=== PATIENT | male | born 1950 | race Caucasian/White ===

== ENCOUNTER 2022-01-06 08:50 | Day surgery (SDC) | payer MEDICARE, SELFPAY ==
[2022-01-05 12:46] LABS: SARS PCR* Negative SARS-CoV-2 (Negative)
[2022-01-06] VITALS (26 sets, daily range): BP systolic 97–179; BP diastolic 64–108; PULSE 51–94; RESP 11–18; TEMP 36–36.7; O2SAT 93–100; BMI 27.9
[2022-01-06] MEDS: OXYCODONE (CR) 10 MG TAB.ER.12H PO (08:55)
[2022-01-06] MEDS: LACTATED RINGERS 1000 ML 1,000 ML 100 ML IV ×2 (09:00→10:52)
[2022-01-06] MEDS: SODIUM CHLORIDE 0.9 % (FLUSH) 10 ML SYRINGE IVF (09:35)
--- NOTE | 2022-01-06 09:36 | SUR.PREOP ---
TIME?OUT:?0936 PT/Karli ANDERSEN RN/Solo GRANADO MDA?VERIFICATION?OF?SURGICAL?SITE,?PROCEDURE,?AND?CONSENT OBTAINED?PRIOR?TO?INVASIVE?PROCEDURE.
--- NOTE | 2022-01-06 09:57 | P.NB_ITS ---
Nerve Block Nerve Block Time Seen by Provider: 09:35 Date Seen: 01/06/22 Type of block requested by surgeon for post-operative analgesia: adductor canal Side: right Time out performed: Yes Verification of patient name: Yes Verification of date of : Yes Site marking: site marked Name of person performing procedure: Eleuterio Continuous monitoring Was continuous monitoring of O2 sat, B/P, distribution center supervisor, recorded every 15 minutes?: Yes Procedure Checklist: sterile prep, needles and gloves Ultrasound guided. Images saved: Yes Medications given in 5ml increments after negative aspiration: Ropivicaine %: 0.5 mL: 20 Needle gauge: 22 Decadron (mg): 10 Precedex (mcg): 25 Patient tolerated procedure well: Yes Additional comments: Needle noted adjacent to nerve
--- NOTE | 2022-01-06 09:58 | P.NB_ITS ---
Nerve Block Nerve Block Time Seen by Provider: 09:35 Date Seen: 01/06/22 Type of block requested by surgeon for post-operative analgesia: geniculars Side: right Time out performed: Yes Verification of patient name: Yes Verification of date of : Yes Site marking: site marked Name of person performing procedure: Eleuterio Continuous monitoring Was continuous monitoring of O2 sat, B/P, roofing subcontractor, recorded every 15 minutes?: Yes Procedure Checklist: sterile prep, needles and gloves Medications given in 5ml increments after negative aspiration: Ropivicaine %: 0.5 mL: 9 Needle gauge: 25 Patient tolerated procedure well: Yes
[2022-01-06] MEDS: CEFAZOLIN 2 GM INJ IVP (10:15)
--- NOTE | 2022-01-06 10:48 | SUR.OPER ---
PATIENT QUESTIONS ANSWERED SATISFACTORILY PREOPERATIVELY. PATIENT BROUGHT TO OR #2 PER WHEELCHAIR. Patient positioned supine on OR #2 bed.? Perioperative team supported arms on arm boardS. Final approval of positioning by surgeon.
--- NOTE | 2022-01-06 11:17 | CRLHL7_ITS ---
For Patients: As a result of the Cures Act, medical imaging exams and procedure reports are released immediately into your electronic medical record. You may view this report before your referring provider. If you have questions, please contact your health care provider. Indication: POST OP RIGHT TKA Technique: Two views right knee Findings/Impression: Hardware from a right total knee arthroplasty is in satisfactory position. Bone alignment is normal. No sign of acute fracture. Postop changes are within normal limits. Soft tissue varicosities. Dictated by José Rodriguez MD @ 01/06/2022 12:36:36 PM (Electronically Signed)
--- NOTE | 2022-01-06 11:21 | PM.ORPRC ---
Procedure Note Date of procedure: 01/06/22 Procedure: SURGEON: David Mcfarland MD COOK STARCH: Kenzie Yañez PA-C PREOPERATIVE DIAGNOSIS: Right knee osteoarthritis POSTOPERATIVE DIAGNOSIS: Right knee osteoarthritis NAME OF OPERATION: Right total knee arthroplasty ANESTHESIA: Spinal ESTIMATED BLOOD LOSS: 0 mL COMPLICATIONS: None SPECIMENS: None DRAINS: None PREOPERATIVE ANTIBIOTICS: Ancef 2 grams IMPLANTS: 1. J&J Attune # 8 posterior stabilized femur 2. #6 fixed-bearing tibia 3. # 8 posterior stabilized, 5 mm fixed-bearing polyethylene 4. 41 patella INDICATIONS: The patient is a 71-year-old male with a longstanding history of severe, unrelenting right knee pain secondary to end-stage (grade IV) right knee osteoarthritis. Despite appropriate nonoperative management, including activity modification, anti-inflammatories, cijr-utk-ktojsuc pain medication, bracing, physical therapy, and injections they continue to have pain and disability. Operative intervention was offered. The risks, benefits and expected outcomes were discussed in detail. These included but were not limited to: Infection, bleeding, injury to blood vessel or nerve, venous thromboembolism. All questions were answered to their satisfaction. Use of an legal administrative assistant was necessary throughout the case for patient positioning and safety, soft tissue retraction, and closure. PROCEDURE: Spinal anesthesia was administered. The patient was placed supine on the operating table. The legal administrative assistant made sure the patient was positioned appropriately. The lower extremity was prepped and draped in the usual sterile fashion. The limb was exsanguinated with the Yohan bandage. The pneumatic tourniquet was inflated to 300 mmHg. A standard anterior incision was made with the knee in flexion. Subcutaneous dissection was sharply taken through fascial layer #1. Full-thickness medial and lateral flaps were elevated. The legal administrative assistant retracted the soft tissues and protected them throughout the case. A standard medial parapatellar approach was made. The patella was everted. The infrapatellar fat pad was preserved. The menisci and cruciate ligaments were sharply d?brided. Marginal osteophytes were d?brided with the rongeur. The drill was used to penetrate the femoral canal. The canal was aspirated and irrigated with pulse lavage. The intramedullary femoral guide was placed for a 5-degree valgus cut, removing 10 mm off the distal femur. The saw was used to make the cut. Whitesides line and the trans epicondylar axis were marked. The femoral sizing guide was pinned onto the distal femur. Three degrees of external rotation nicely parallels the transepicondylar axis. Pins were placed for posterior referencing. The four-in-one cutting guide was pinned onto the distal femur. The anterior, posterior, and chamfer cuts were made. The legal administrative assistant protected the collateral ligaments. The box cutting guide was pinned. The box cuts were made. The boxed trial was placed and was an excellent fit. Drill holes for the lugs were made. Attention was then turned to the proximal tibia. The extramedullary tibial guide was placed for a neutral varus/valgus cut with 5 degrees of posterior slope, removing 1 mm based off the medial tibial surface. The legal administrative assistant protected the collateral ligaments and the neurovascular bundle. The saw was used to make the cut. Trial components were placed. The knee was tight in both flexion and extension. We trialed components to simulate taking 2 more mm. The knee was still tight in both flexion and extension. Therefore, we replaced tibial cutting guide. We placed 2 more pins distally and advanced the guide 4 more mm. The saw was used to make the cut again. Trial components were placed again. Now with the knee was nicely balanced in both flexion and extension. Rotation of the tibial component was matched to the femur in full extension, matched to our tibial cutting pins, and marked with cautery. The trial components were removed. The tray was pinned by the legal administrative assistant and the drill and the punch were used. The tray was removed. The punch was used again. We placed a bone plug in the femoral canal. Attention was then turned to the patella. [place] patellar thickness was 24 mm. The lobster claw resection guide was used with the 9.5 mm ricardo. The saw was used to make the cut. Drill holes were made by the legal administrative assistant. The trial was placed and was an excellent fit. Cancellous surfaces were irrigated with pulse lavage and thoroughly dried by the legal administrative assistant. We cemented the tibial component, then the femoral component. A trial spacer was placed. The knee was brought into full extension. We then cemented the patellar component. Excessive cement was removed. The cement was allowed to harden. Any remaining excessive cement was removed with the osteotome. We impacted the 5 mm polyethylene onto the tibial tray. The knee was taken through a range of motion and was found to be nicely balanced in both flexion and extension. The patella tracks centrally. The legal administrative assistant did a three minute dilute Betadine solution soak. The legal administrative assistant irrigated the wound with 3 liters of normal saline via pulse lavage. The legal administrative assistant reapproximated the extensor mechanism with #1 Vicryl in an interrupted [id number] fashion. The legal administrative assistant then ran the extensor mechanism with a #1 PDO Stratafix. The legal administrative assistant closed the subcutaneous tissues with a 3-0 Stratafix and the skin with a running 3-0 Stratafix in a subcuticular fashion. Glue was used to seal the skin. The legal administrative assistant placed a dry dressing, KING stocking, and Polar Care. Sponge and needle counts were correct x2. The patient tolerated the procedure well. There were no apparent complications. They were carefully transferred to the hospital bed and taken to the postanesthesia care unit in satisfactory condition. PLAN: The patient will be mobilized with physical therapy. Aspirin will be used for DVT prophylaxis. They will be discharged to home once medically appropriate.
--- NOTE | 2022-01-06 11:24 | SUR.OPER ---
3000cc NACL BAG USED FOR IRRIGATION OF THE RIGHT KNEE STARTING AT 11:04. ENTIRE 3000cc USED.
--- NOTE | 2022-01-06 11:43 | SUR.OPER ---
ADDITIONAL 1000cc BAG NACL USED FOR IRRIGATION AT 11:39
--- NOTE | 2022-01-06 12:13 | W.ANESCHARGE ---
Anesthesia Charges Start Date/Time Anesthesia Start Date: 01/06/22 Anesthesia Start Time: 10:00 Stop Date/Time Anesthesia Stop Date: 01/06/22 Anesthesia Stop Time: 12:12 Summary Emergency: No Extremes of Age: Over 71-CPT 41491
[2022-01-06] MEDS: LACTATED RINGERS 1000 ML 1,000 ML 35 ML IV (13:05)
--- NOTE | 2022-01-06 13:52 | W.ANESCHARGE ---
Anesthesia Charges Start Date/Time Anesthesia Start Date: 01/06/22 Anesthesia Start Time: 10:00 Stop Date/Time Anesthesia Stop Date: 01/06/22 Anesthesia Stop Time: 12:12 Summary Emergency: No Extremes of Age: Over 71-CPT 12917
--- NOTE | 2022-01-06 14:21 | P.IMCN_ITS ---
Date of Consult Consult date: 01/06/22 Requesting Physician: Orthopedics Primary Care Provider: Zaid Wu MD Consult Narrative Reason for consult: Management of medical problems following surgery Narrative: [place] Almanzar is a 71 year old male seen in followup of right total knee arthroplasty. Procedure was performed today by Dr. Mcfarland. There was no complications. He is doing well after surgery. His nerve blocks are just beginning to wear off. He had no preoperative health concerns. He had a preop physical which showed no active medical problems. He has not had any recent illness. He did undergo physical therapy preoperatively which caused his knee to swell and be extremely painful for a few days. 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 This was felt due to cerebral amyloid angiopathy. As a result of this he has been advised to avoid aspirin and NSAIDs and anticoagulation He has had previous hernia surgery. He has had no problems with clotting and no problems with anesthesia. Only bleeding problem was his intra cerebral hemorrhage. Review of Systems Narrative: He reports no recent illness or injury. He has been generally feeling well except for his right knee. He has been limping on his right knee for several years. Previous knee injections have been of temporary benefit. [facility] Medical History (Updated 01/06/22 @ 14:37 by Malik Andrade MD) Cerebral amyloid angiopathy Cerebral hemorrhage Heart murmur Insomnia Pain of left side of body Paresthesia Surgical History H/O eye surgery History of hernia repair (~04/25/21) Family History Mother CHF (congestive heart failure) Father Heart attack High blood pressure Father ETOH abuse Brother Pacemaker COPD (chronic obstructive pulmonary disease) Sister A-fib Mother High blood pressure Social History (Updated 01/06/22 @ 14:34 by Malik Andrade MD) Narrative: He lives at home alone. He is self-employed doing work on [employer]. Closest family is his son Winston who lives in [place]. Winston is his healthcare power of claims attorney. His code status is full. Smoking Status: Former smoker Do you use any of these nicotine containing products: None How often do you have a drink containing alcohol: never AUDIT-C Alcohol total score: 0 Non-prescribed substance use: denies use Caffeine: Yes (occ coffee) Meds Home Medications and Allergies Home Medications Medication Instructions Recorded Confirmed Type acetaminophen 500 mg tablet 1,000 mg PO HS PRN 01/05/22 01/06/22 History tamsulosin 0.4 mg capsule 0.4 mg PO Q24H 01/05/22 01/06/22 History Allergies Allergy/AdvReac Type Severity Reaction Status Date / Time No Known Allergies Allergy Verified 01/06/22 09:08 Exam Narrative: Exam Narrative: He is alert and appears in no distress. Head is normal. Eyes normal. Oropharynx normal. Neck is supple without mass or adenopathy. Respirations are clear to auscultation. Cardiovascular: S1, S2, 1/6 systolic murmur. No gallop or rub. Abdomen: Bowel sounds active. Abdomen is soft without tenderness or mass. He has intact pedal pulses. His block affecting his right leg is still in affect any SI decreased sensation and strength in his right foot and ankle. No edema. Const: Vital Signs, click to edit/add: Vital Signs - 24 hr 01/06/22 09:12 01/06/22 09:36 01/06/22 09:40 Temperature 97.7 F Pulse Rate 70 55 L 56 L Respiratory Rate 18 16 14 Blood Pressure 139/72 132/98 H 127/83 Pulse Oximetry 99 99 100 01/06/22 09:45 01/06/22 12:07 01/06/22 12:10 Temperature 97.5 F L Pulse Rate 59 L 57 L 58 L Respiratory Rate 14 16 Blood Pressure 117/77 99/65 97/64 Pulse Oximetry 100 94 95 01/06/22 12:15 01/06/22 12:25 01/06/22 12:30 Temperature Pulse Rate 63 53 L 51 L Respiratory Rate 16 12 16 Blood Pressure 101/69 112/64 111/67 Pulse Oximetry 94 95 93 01/06/22 12:35 01/06/22 12:40 01/06/22 12:45 Temperature Pulse Rate 52 L 52 L 59 L Respiratory Rate 15 12 11 L Blood Pressure 102/70 104/67 113/76 Pulse Oximetry 94 93 95 01/06/22 12:50 01/06/22 12:55 01/06/22 13:02 Temperature 96.8 F L Pulse Rate 54 L 53 L 53 L Respiratory Rate 16 12 Blood Pressure 110/71 110/69 115/73 Pulse Oximetry 95 95 96 Documenting provider has reviewed patient's vital signs: yes Assessment and Plan Assessment and plan (1) Osteoarthritis of right knee: Status: Acute (2) Cerebral amyloid angiopathy: Problem comment: Cerebral amyloid angiopathy places patient at increased risk for intracerebral hemorrhage with antiplatelet and anticoagulation medicines. These medicines should only be used if the benefits exceed the risks. I do not think the benefits exceed the risk in this circumstance. Status: Acute
--- NOTE | 2022-01-06 15:38 | PC.NURSE ---
Pt arrived to room 260 from PACU in his hospital bed s/p RTKA with Dr. Mcfarland @ 1309pm. Initial assessment from PACU completed. Please see frequent post op VS. Pt denies pain or nausea. Pt does report some mild anxiety. BP levels trending up between 1400 and 1500, pt denies hx of HTN. Dr. Merritt notified of these elevated readings, nursing to continue monitoring pt's BP readings at this time. Jack from PT contacted to start working with pt, plan dangle while sitting on the edge of the bed and possible transfer to recliner if pt's block allows this position change. Report to Quin MULTANI for evening shift.
[2022-01-06] MEDS: CEFAZOLIN 2 GM in 0.9 % SODIUM CHLORIDE Mini-bag 100 ML IVPB (16:15)
[2022-01-06] MEDS: LACTATED RINGERS 1000 ML 1,000 ML 75 ML IV (16:15)
[2022-01-06] MEDS: MAG HYDROX/ALUMINUM HYD/SIMETH 30 ML ORAL.SUSP PO (16:16)
[2022-01-06] MEDS: OXYCODONE 5 MG TABLET PO ×4 (16:21→22:39)
[2022-01-06] MEDS: ONDANSETRON 2 MG/ML inj 4 MG IVP (16:36)
[2022-01-06] MEDS: ACETAMINOPHEN 500 MG TABLET 1000 MG PO (18:20)
[2022-01-06] MEDS: CELECOXIB 200 MG CAPSULE PO (21:09)
[2022-01-06] MEDS: LORazepam 0.5 MG TABLET PO (21:10)
[2022-01-06] MEDS: SENNOSIDES 1 TAB TABLET 2 TAB PO (21:10)
[2022-01-06] MEDS: HYDROmorphone 0.5 mg/0.5 ml inj IVP (23:20)
--- NOTE | 2022-01-06 23:23 | PC.NURSE ---
Patient is up to the chair/bathroom with assist of 1, walker and gait belt. Managing pain with PRN oxycodone. Cryo-cuff, SCDs and teds in place. Patient c/o of indigestion - Maalox given with relief.
[2022-01-07] MEDS: ACETAMINOPHEN 500 MG TABLET 1000 MG PO ×2 (00:30→06:26)
[2022-01-07] MEDS: CEFAZOLIN 2 GM in 0.9 % SODIUM CHLORIDE Mini-bag 100 ML IVPB ×2 (00:31→08:36)
[2022-01-07] MEDS: OXYCODONE 5 MG TABLET PO ×2 (00:33→07:41)
[2022-01-07 01:14] VITALS: BP 111/64; PULSE 72; RESP 16; TEMP 36.6; O2SAT 96
[2022-01-07 04:30] VITALS: RESP 14
--- NOTE | 2022-01-07 06:12 | PC.NURSE ---
Shift Note : Pt pleasant and cooperative, VSS, afebrile, BS active. Pt has slept most of the shift, see eMAR for medication administration.
[2022-01-07 07:12] LABS: INR 1.14 (0.91-1.10)
[2022-01-07 07:30] VITALS: BP 120/67; PULSE 76; RESP 16; TEMP 37.1; O2SAT 98
[2022-01-07] MEDS: TAMSULOSIN HCL 0.4 MG CAPSULE PO (08:37)
[2022-01-07] MEDS: CELECOXIB 200 MG CAPSULE PO (08:37)
[2022-01-07] MEDS: SENNOSIDES 1 TAB TABLET 2 TAB PO (08:37)
--- NOTE | 2022-01-07 09:11 | PM.ORPN ---
Subjective Subjective Time Seen by Provider: 08:10 Date Seen: 01/07/22 Principal diagnosis: Status post right knee replacement Interval history: [place] is comfortable this morning. He plans to discharge home today. He is at high risk of intracranial bleed and therefore cannot take anticoagulants. Ortho Exam Narrative Exam Narrative: Alert and oriented x3. Patient is in no acute distress. Converses without labored breathing. Hearing is grossly intact. Ambulates with a walker. Examination the right lower extremity shows the incision is covered with a dressing that is clean, dry, and intact. Mild soft tissue edema about the knee. Mild effusion. Bilateral calves are soft and nontender. CMS intact right lower extremity. Const Vital Signs, click to edit/add: Vital Signs - 24 hr 01/06/22 09:12 01/06/22 09:36 01/06/22 09:40 Temperature 97.7 F Pulse Rate 70 55 L 56 L Pulse Rate [Pulse Oximeter] Respiratory Rate 18 16 14 Blood Pressure 139/72 132/98 H 127/83 Blood Pressure [Right Arm] Pulse Oximetry 99 99 100 01/06/22 09:45 01/06/22 12:07 01/06/22 12:10 Temperature 97.5 F L Pulse Rate 59 L 57 L 58 L Pulse Rate [Pulse Oximeter] Respiratory Rate 14 16 Blood Pressure 117/77 99/65 97/64 Blood Pressure [Right Arm] Pulse Oximetry 100 94 95 01/06/22 12:15 01/06/22 12:25 01/06/22 12:30 Temperature Pulse Rate 63 53 L 51 L Pulse Rate [Pulse Oximeter] Respiratory Rate 16 12 16 Blood Pressure 101/69 112/64 111/67 Blood Pressure [Right Arm] Pulse Oximetry 94 95 93 01/06/22 12:35 01/06/22 12:40 01/06/22 12:45 Temperature Pulse Rate 52 L 52 L 59 L Pulse Rate [Pulse Oximeter] Respiratory Rate 15 12 11 L Blood Pressure 102/70 104/67 113/76 Blood Pressure [Right Arm] Pulse Oximetry 94 93 95 01/06/22 12:50 01/06/22 12:55 01/06/22 13:00 Temperature 96.8 F L 97.3 F L Pulse Rate 54 L 53 L 64 Pulse Rate [Pulse Oximeter] Respiratory Rate 16 12 16 Blood Pressure 110/71 110/69 Blood Pressure [Right Arm] 124/82 Pulse Oximetry 95 95 01/06/22 13:02 01/06/22 13:30 01/06/22 13:45 Temperature 97.3 F L Pulse Rate 53 L Pulse Rate [Pulse Oximeter] 62 62 Respiratory Rate 16 Blood Pressure 115/73 Blood Pressure [Right Arm] 129/86 133/89 Pulse Oximetry 96 100 01/06/22 14:00 01/06/22 14:15 01/06/22 14:30 Temperature Pulse Rate Pulse Rate [Pulse Oximeter] 65 66 77 Respiratory Rate 16 16 Blood Pressure Blood Pressure [Right Arm] 145/100 H 147/94 H 145/104 H Pulse Oximetry 99 100 01/06/22 15:00 01/06/22 16:00 01/06/22 17:00 Temperature 98.1 F 97.9 F Pulse Rate Pulse Rate [Pulse Oximeter] 76 71 71 Respiratory Rate 16 16 16 Blood Pressure Blood Pressure [Right Arm] 177/105 H 179/108 H 163/89 H Pulse Oximetry 100 99 100 01/06/22 18:00 01/06/22 19:00 01/07/22 01:14 Temperature 98.0 F 97.9 F 97.8 F Pulse Rate Pulse Rate [Pulse Oximeter] 74 94 72 Respiratory Rate 16 16 16 Blood Pressure Blood Pressure [Right Arm] 143/83 H 126/79 111/64 Pulse Oximetry 100 100 96 01/07/22 04:30 01/07/22 07:30 Temperature 98.8 F Pulse Rate Pulse Rate [Pulse Oximeter] 76 Respiratory Rate 14 16 Blood Pressure Blood Pressure [Right Arm] 120/67 Pulse Oximetry 98 Assessment and Plan Assessment and plan (1) Osteoarthritis of right knee: Status: Acute (2) Cerebral amyloid angiopathy: Problem details: Cerebral amyloid angiopathy places patient at increased risk for intracerebral hemorrhage with antiplatelet and anticoagulation medicines. These medicines should only be used if the benefits exceed the risks. I do not think the benefits exceed the risk in this circumstance. Status: Acute (3) Status post total knee replacement, right: Status: Acute Assessment and Plan: Plan for discharge is today to home if they meet discharge criteria. DVT prophylaxis includes home SCDs for 1 month, Payam stockings x1 month may remove for 1 hr per day, frequent ambulation, frequent ankle range of motion to promote blood flow. These home measures are stressed to [place], since he cannot take anti coagulants it is very important for him to move about his home frequently, use the SCDs, pump his ankles. He understands and agrees. He will let us know at any point if he develops calf pain. We discussed elevating his leg above heart level 3 times a day when he is at home and at the 1st sign of soft tissue edema he will massage this fluid proximally. Remove dressing in 1 week. Observe wound and phone Orthopedics with any questions or concerns Return to clinic in 1 week for a wound check Return to clinic in [address] Mcfarland Minimize narcotic use. Wean off and discontinue soon as possible. Activities as tolerated. No strenuous activity. Outpatient physical therapy as scheduled. Ice and elevate the operative extremity. No restriction on ice.
[2022-01-07 09:14] LABS: Hematocrit 30.7 % (37.0-53.0); Hemoglobin* 9.9 gm/dL (13.5-17.5); Mean Corpuscular HGB Conc 32 gm/dL (32-36); Mean Corpuscular Hemoglobin 29 pg (26-34); Mean Corpuscular Volume 90 fL (80-100); Platelet Count* 189 K/uL (140-440); Red Blood Count 3.43 m/uL (4.30-5.90); White Blood Count* 10.56 K/uL (4.50-11.00)
[2022-01-07 09:17] LABS: Slide Review Reflex No
[2022-01-07 09:19] LABS: Chloride* 106 mmol/L (96-114); Sodium* 137 mmol/L (135-149)
[2022-01-07 09:20] LABS: Potassium* 4.4 mmol/L (3.6-5.1)
[2022-01-07 09:22] LABS: Creatinine* 0.7 mg/dL (0.5-1.5); Est. Creatinine Clearance* 64.26; Estimated Glomerular Filt Rate 99.12
[2022-01-07 09:23] LABS: Blood Urea Nitrogen* 18 mg/dL (7-30); Carbon Dioxide* 27 mmol/L (20-32)
--- NOTE | 2022-01-07 13:11 | P.DS_ITS ---
DS: Providers Provider Primary care physician: Zaid Wu MD Attending Physician on discharge: David Mcfarland MD Date of Discharge: 01/07/22 DS: Diagnosis Discharge Diagnosis (1) Status post total knee replacement, right: Status: Acute (2) Cerebral amyloid angiopathy: Status: Acute Problem details: Cerebral amyloid angiopathy places patient at increased risk for intracerebral hemorrhage with antiplatelet and anticoagulation medicines. These medicines should only be used if the benefits exceed the risks. I do not think the benefits exceed the risk in this circumstance. DS: Summary Hospital Course Hospital Course: 71-year-old male admitted to the hospital yesterday for right total knee arthroplasty. Procedures performed by Dr. Mcfarland. There were no complications. He has done well overnight. Eating normally. Did well with physical therapy. Pain is well controlled. Decision was made to forego chemical VTE prophylaxis and use compression stockings and pneumatic compression to prevent VTE. Status at Discharge Overall status at discharge: patient is back to baseline Time Spent with Patient Time attestation: Total time spent providing and/or coordinating discharge services: Time spent: Greater than 30 minutes Exam Narrative: Exam Narrative: He is alert and appears in no distress. Breathing is unlabored. Legs examined. He has mild swelling around the knee. No marked erythema. Intact pulses and sensation distally. No pedal edema Const: Vital Signs, click to edit/add: Vital Signs - 24 hr 01/06/22 13:30 01/06/22 13:45 01/06/22 14:00 Temperature 97.3 F L Pulse Rate [Pulse Oximeter] 62 62 65 Respiratory Rate 16 16 Blood Pressure [Ri ght Arm] 129/86 133/89 145/100 H Pulse Oximetry 100 99 01/06/22 14:15 01/06/22 14:30 01/06/22 15:00 Temperature Pulse Rate [Pulse Oximeter] 66 77 76 Respiratory Rate 16 16 Blood Pressure [Ri ght Arm] 147/94 H 145/104 H 177/105 H Pulse Oximetry 100 100 01/06/22 16:00 01/06/22 17:00 01/06/22 18:00 Temperature 98.1 F 97.9 F 98.0 F Pulse Rate [Pulse Oximeter] 71 71 74 Respiratory Rate 16 16 16 Blood Pressure [Ri ght Arm] 179/108 H 163/89 H 143/83 H Pulse Oximetry 99 100 100 01/06/22 19:00 01/07/22 01:14 01/07/22 04:30 Temperature 97.9 F 97.8 F Pulse Rate [Pulse Oximeter] 94 72 Respiratory Rate 16 16 14 Blood Pressure [Ri ght Arm] 126/79 111/64 Pulse Oximetry 100 96 01/07/22 07:30 Temperature 98.8 F Pulse Rate [Pulse Oximeter] 76 Respiratory Rate 16 [facility] 120/67 Pulse Oximetry 98 Documenting provider has reviewed patient's vital signs: yes DS: Data Data Completed and Pending Labs on day of discharge: Labs from last 24 hours 01/07/22 01/07/22 01/07/22 06:47 06:47 06:40 WBC 10.56 RBC 3.43 L Hgb 9.9 L Hct 30.7 L MCV 90 MCH 29 MCHC 32 Plt Count 189 INR 1.14 H Sodium 137 Potassium 4.4 Chloride 106 Carbon Dioxide 27 BUN 18 Creatinine 0.7 Estimated Creat Clear 64.26 Discharge Plan Discharge Disposition: Home, Self-Care Discharging Surgeon: David Mcfarland Follow-Up Appointment: One week Prescriptions: New oxycodone 5 mg Tablet 2.5 - 5 mg PO Q4-6H MDD 6 tabs per day PRN (Reason: Pain) Qty: 42 0RF Rx Instructions: Minimize. Discontinue as soon as possible sennosides [Senna Lax] 8.6 mg Tablet 17.2 mg PO BID PRNQty: 100 0RF Rx Instructions: For narcotic related constipation Continued tamsulosin 0.4 mg capsule 0.4 mg PO Q24H 0RF Label Comments: Take 1 Capsule (0.4 mg) by mouth once daily after a meal. acetaminophen 500 mg tablet 1,000 mg PO HS PRN0RF Activity Level: Activity as Tolerated and No strenuous activity Activity Detail: Keep dressing on for 1 week. Dressing is waterproof. May shower. Surgical glue covers the wound. Attend Outpatient physical therapy as scheduled. Ice operative extremity without restriction. Wear compression stockings for 1 month post surgery. May remove for 1 hour per day. Notify Orthopedics with any questions or concerns ([phone]). Discharge Diet: Regular Patient Instructions: Laxative, Stimulant (By mouth), Oxycodone, Rapid Release (By mouth), Knee Replacement (DC) Forms: Work/Release Restrictions Follow-up: [facility] [Provider Group] - 01/13/22 12:30 pm (Physical therapy at [facility] ) Orthopedics, [facility] [Provider Group] - 01/15/22 1:40 pm (With Letty Pacheco ) David Mcfarland MD [Staff Physician] - (At your first appointment your 6 week appointment will be made with Dr. Mcfarland) Zaid Wu MD [Primary Care Provider] - Discharge Orders: Discharge Order (Routine); Ordered 01/07/22 Ordered By: Malik Andrade
== END 2022-01-07 12:15 | disposition home or self-care (01) ==
LOC: OR 08:50 → MEDSURG 01-07 11:02
PROVIDERS: Physician Assistant; PCP Family Medicine; Visit Provider Orthopaedic Surgery
PROC: (CPT 27447; principal; 2022-01-06 10:00)
DX: M17.11 Unilateral primary osteoarthritis, right knee (principal); E85.4 Organ-limited amyloidosis; I68.0 Cerebral amyloid angiopathy
CPT/HCPCS: 27447; 1402; 36415; 64447; 64454; 73560; 76942; 80051; 82565; 84520; 85027; 85610; 87635; 97110; 97116; 97161; 97165; 97535; 99100; A9270; C1776; J0690; J1100; J1170; J2250; J2405; J2704; J2795; J7120

== ENCOUNTER 2022-03-25 15:30 | Outpatient (RCR) | payer MEDICARE, SELFPAY ==
--- NOTE | 2022-01-20 09:05 | PT.OPDNX ---
PT [place] Out[facility] Daily Note PT [facility] Outpatient Daily Note Start: 01/19/22 15:34 Freq: Status: Active Protocol: Document 01/19/22 16:55 HUYEN (Rec: 01/19/22 17:37 HUYEN [id number]) E-Signed By Yen Garcia, PT PT OP Daily Progress Note Visit Information Note Type Daily Note Visit Number 1 Running Total Visit Number 2 Insurance Information Recert Due Date 03/19/22 Insurance Name Medicare B Insurance Information/Comments Patient?s PT course of care was initiated in previous EMR system for Pre-op evaluation on 12-17-21 under the . Medical Diagnosis s/p R TKA (DOS: 01-06-22) Treating Diagnosis R knee pain; Decreased R knee ROM; Decreased R knee strength gait impairments Referring MD Dr. Mcfarland Subjective Subjective [place] presents to PT post op R TKA. His surgery was on 06-18. Pt has not yet been seen by PT or by ortho for a follow up due to severe pain and limited transportation. He is concerned he is behind in his progress due to inability to attend PT session prior. He was also questioning if his post op bandage could be removed. Pt reports he struggled with severe pain following surgery. Pain was so bad he was not able to get out of bed for days. Over the past 3-4 days, he is finally feeling better. Pain levels are about a 6/10 . He uses Tylenol during day to control pain and an Oxycodone at night. Does have trouble sleeping at night due to pain. Pt initially did not do his HEP as directed due to his severe pain and inability to move his leg on his own. Started to be able to move his leg over the past 3-4 days so has been doing more exercises. His goal for therapy is to improve the use of his R LE Pain Comments Reported a 6/10 at time of eval. Precautions Treatment Precautions/Contraindications HX/o CVA (hemorrhage) Objective Other/Pertinent Objective AROM of R knee: 0-14-72 (L knee: 0-5-125) pre treatment; post treatment: 0-10-75 R LE strength: Quad set:3-/5; SLR - unable without quad lag HS flexibility on R: 50; R DF: 5 degree Edema: at patella- R: 43.0 cm , L: 41.0 cm; 16 cm distal to patella- R: 33.6 cm. L: 32.8 cm Gait - ambulates with 2 wheeled walker and shortened step length. Limited R knee ROM throughout gait cycle. Reeval X 20 mins. Patient Instructed in Risks/Benefits Yes Therapeutic Exercise Therapeutic Exercise Minutes (minutes) 20 Therapeutic Exercise: To Restore Review of HEP - Functional Status ankle pumps QS - suggested placed rolled towel behind knee to improve firing of quad. heel slides X 5. Has heel pain and tenderness so did not do more reps. SLR X 10 Seated heel slides X 10 Worked on R knee ROM with emphasis on ext with prolonged stretch and gentle manual pressure. Pt was guarding into flexion. Manual Therapy Techniques Manual Therapy Minutes (minutes) 5 Manual Therapy Techniques PA and AP mobs to increase ROM . Patellar mobs with emphasis on sup and inf glides Gait & Stair Training Gait Training/Stairs Minutes (minutes) 2 Gait & Stair Training Comments Worked on heel to toe gait pattern on R to increase R knee ROM during gait cycle and lengthening step/striden length. Self Care Management Training Self-Care Activity Minutes (minutes) 10 Self Care Management Training Did remove pt's dressing per orthro nursing. Incision looks clean, no drainage and no redness. Min/scant blood on dressing. Did review signs of infection with pt. Pt asked about showering - told him it was OK but not to soak knee. Treatment Minutes Untimed Code Treatment Minutes 20 Timed Code Treatment Minutes 37 Total Treatment Time 57 Billing Units Self-Care Activity Units 1 Therapeutic Exercise Units 1 Re-Evaluation Units 1 Assessment/Impression Assessment/Impression Pt had surgery approx 2 weeks ago and has not attended any PT or follow up ortho appts due to pain and limited transportation. Overall he is doing fair but slow progress due to lack of care post op. R knee ROM is limited to 0-10- 75. Has significant R LE weakness chandra in quad. Is able to perform a SLR with knee flexed. Edema is controlled. Incision is clean and healing well. Ambulating with mod limp with 4 wheeled walker. Plan is to continue with further skilled PT services to improve his ROM, strength and function with use of ther exs , NMRE, gait training and MT. Plan of Care Physical Therapy Goals New Goals established for post op rehab Short-term goals to be completed in 4 weeks: 1. Pt will display an increase in R knee AROM to 0-8-105 for ease with transfers and toileting. 2. Pt will display improved mechanics going up/down a 3 stairs with a reciprocal pattern using railing to safely get into this house. 3. Pt will display improved right hip flex, quad and hamstring strength >4/5 to improve quality of gait and yez-ic-gcdrr transfers. Long-term goals to be completed in 12 weeks: 1. Pt will be independent with HEP 2. Pt will increase his R knee AROM to 0-0-115 for ability to return to ambulating stairs and performing car transfers with ease. 3. Pt will be able to return to ambulation without an AD with mild to no gait deviations community based distances. Daily Plan of Care Continue per POC Daily Plan of Care Comments 1-2 times as week up to 12 weeks. Recertification Information Patient's H.I.C.N.# # Initial Certification Date 12/17/21 Most Recent Visit 01/19/22 Recertification Start Date 01/19/22 Recertification Due Date 04/19/22 Reasons to Continue Skilled Therapy Pt had surgery for his R TKA on 01-06-22. He has not been seen for a follow up with ortho or by rehab yet due to severe pain levels and limited transportation. His R knee ROM and strength is significantly limited due to his lack of post op follow through with MD and rehab. He would benefit from continued skilled PT services to work on his ROM, strength, gait, and balance for improvement in his function, pain reduction, independence, and safety. Rehabilitation Potential Good Continued Plan of Care and Interventions Will continue with PT over the next 8-12 weeks, 1-2 times a week. Will use ther exs, NMRE , ther act, manual therapy to improve his status. I Certify That I Have Established All Therapy Services/Plan Therapist Signature & License Number Monica Garcia, PT [id number] Physician Signature Shows Agreement Dates & Medical Necessity Physician Comment/Change Comment or Changes Physician Signature & Date Please Sign/Date Here Physician NPI Number #
== END 2022-05-22 15:29 | disposition home or self-care (01) ==
PROVIDERS: PCP Family Medicine; Visit Provider Orthopaedic Surgery
DX: M25.561 Pain in right knee (principal); Z51.89 Encounter for other specified aftercare
CPT/HCPCS: 97110; 97140; 97164; 97535

== ENCOUNTER 2022-06-25 07:27 | Day surgery (SDC) | payer MEDICARE, SELFPAY ==
[2022-06-25] VITALS (25 sets, daily range): BP systolic 92–152; BP diastolic 60–107; PULSE 51–96; RESP 12–18; TEMP 35.3–36.9; O2SAT 94–100; BMI 29.9
[2022-06-25] MEDS: CELECOXIB 200 MG CAPSULE PO (07:50)
[2022-06-25] MEDS: OXYCODONE (CR) 10 MG TAB.ER.12H PO (07:50)
[2022-06-25] MEDS: ACETAMINOPHEN 500 MG TABLET 1000 MG PO ×3 (07:50→20:06)
[2022-06-25] MEDS: SODIUM CHLORIDE 0.9 % (FLUSH) 10 ML SYRINGE IVF (08:20)
[2022-06-25] MEDS: LACTATED RINGERS 1000 ML 1,000 ML 100 ML IV ×2 (08:20→11:27)
[2022-06-25] MEDS: fentaNYL 100 MCG/2 ML inj IVP (10:15)
[2022-06-25] MEDS: MIDAZOLAM HCL 1 MG/ML inj IVP (10:15)
--- NOTE | 2022-06-25 10:23 | SUR.PREOP ---
TIME?OUT:?1014 PT/RN/MDA?VERIFICATION?OF?SURGICAL?SITE,?PROCEDURE,?AND?CONSENT OBTAINED?PRIOR?TO?INVASIVE?PROCEDURE.
--- NOTE | 2022-06-25 10:47 | W.PM.NB ---
Nerve Block Nerve Block Time Seen by Provider: 10:20 Date Seen: 06/25/22 Type of block requested by surgeon for post-operative analgesia: adductor canal Side: left Time out performed: Yes Verification of patient name: Yes Verification of date of : Yes Site marking: site marked Name of person performing procedure: Eleuterio Continuous monitoring Was continuous monitoring of O2 sat, B/P, electronic device monitor, recorded every 15 minutes?: Yes Procedure Checklist: sterile prep, needles and gloves Ultrasound guided. Images saved: Yes Medications given in 5ml increments after negative aspiration: Ropivicaine %: 0.5 mL: 20 Needle gauge: 20 Decadron (mg): 10 Precedex (mcg): 25 Patient tolerated procedure well: Yes Additional comments: Needle noted adjacent to nerve Block Charges Block Charge (with Pro Fee): Femoral Nerve Use of Ultrasound Machine for Block: Yes- US Guidance/pain block
--- NOTE | 2022-06-25 10:47 | W.PM.NB ---
Nerve Block Nerve Block Time Seen by Provider: 10:20 Date Seen: 06/25/22 Type of block requested by surgeon for post-operative analgesia: geniculars Side: left Time out performed: Yes Verification of patient name: Yes Verification of date of : Yes Site marking: site marked Name of person performing procedure: Eleuterio Continuous monitoring Was continuous monitoring of O2 sat, B/P, channel cementer outsole machine, recorded every 15 minutes?: Yes Procedure Checklist: sterile prep, needles and gloves Medications given in 5ml increments after negative aspiration: Ropivicaine %: 0.5 mL: 9 Needle gauge: 25 Patient tolerated procedure well: Yes Block Charges Block Charge (with Pro Fee): Genicular Nerve Block Use of Ultrasound Machine for Block: No
[2022-06-25] MEDS: CEFAZOLIN 2 GM INJ IVP (11:10)
[2022-06-25] MEDS: TRANEXAMIC ACID 100 MG/ML INJ 1000 MG IV (11:10)
--- NOTE | 2022-06-25 11:27 | SUR.OPER ---
PATIENT QUESTIONS ANSWERED SATISFACTORILY PREOPERATIVELY.? PATIENT BROUGHT TO OR #3 PER CART.? Patient positioned supine on OR #3 bed.? The perioperative?team supported arms bilaterally on arm boards.? Final approval of positioning by surgeon.?
--- NOTE | 2022-06-25 11:29 | W.ANESCHARGE ---
Anesthesia Charges Start Date/Time Anesthesia Start Date: 06/25/22 Anesthesia Start Time: 10:00 Stop Date/Time Anesthesia Stop Date: 06/25/22 Anesthesia Stop Time: 12:12 Summary Emergency: No Extremes of Age: Over 71-CPT 57164
--- NOTE | 2022-06-25 12:23 | CRLHL7_ITS ---
For Patients: As a result of the Cures Act, medical imaging exams and procedure reports are released immediately into your electronic medical record. You may view this report before your referring provider. If you have questions, please contact your health care provider. Indication: POST OP LEFT TKA Technique: Two views left knee Findings/Impression: Hardware from a left total knee arthroplasty is in satisfactory position. Bone alignment is normal. No sign of acute fracture. Postop changes are within normal limits. Dictated by José Rodriguez MD @ 06/25/2022 2:17:42 PM (Electronically Signed)
--- NOTE | 2022-06-25 12:25 | P.ORPRC_ITS ---
Procedure Note Date of procedure: 06/25/22 Procedure: PREOPERATIVE DIAGNOSIS: Left knee osteoarthritis POSTOPERATIVE DIAGNOSIS: Left knee osteoarthritis NAME OF OPERATION: Left total knee arthroplasty SURGEON: David Mcfarland MD DISK RECOATER: YOMAIRA Marin ANESTHESIA: Spinal ESTIMATED BLOOD LOSS: 0 mL COMPLICATIONS: None SPECIMENS: None DRAINS: None PREOPERATIVE ANTIBIOTICS: Ancef 2 grams IMPLANTS: 1. J&J Attune # 8 posterior stabilized femur 2. # 7 fixed-bearing tibia 3. # 8 posterior stabilized, 5 mm fixed-bearing polyethylene 4. 41 patella INDICATIONS: The patient is a 71-year-old with a longstanding history of severe, unrelenting left knee pain secondary to end-stage (grade IV) left knee osteoarthritis. Despite appropriate nonoperative management, including activity modification, anti-inflammatories, ckzz-hnr-vyzlpoa pain medication, bracing, physical therapy, and injections they continue to have pain and disability. Operative intervention was offered. The risks, benefits and expected outcomes were discussed in detail. These included but were not limited to: Infection, bleeding, injury to blood vessel or nerve, venous thromboembolism. All questions were answered to their satisfaction. Use of an city carrier assistant was necessary throughout the case for patient positioning and safety, soft tissue retraction, and closure. PROCEDURE: Spinal anesthesia was administered. The patient was placed supine on the operating table. The city carrier assistant made sure the patient was positioned appropriately. The lower extremity was prepped and draped in the usual sterile fashion. The limb was exsanguinated with the Yohan bandage. The pneumatic tourniquet was inflated to 300 mmHg. A standard anterior incision was made with the knee in flexion. Subcutaneous dissection was sharply taken through fascial layer #1. Full-thickness medial and lateral flaps were elevated. The city carrier assistant retracted the soft tissues and protected them throughout the case. A standard medial parapatellar approach was made. The patella was everted. The infrapatellar fat pad was preserved. The menisci and cruciate ligaments were sharply d?brided. Marginal osteophytes were d?brided with the rongeur. The drill was used to penetrate the femoral canal. The canal was aspirated and irrigated with pulse lavage. The intramedullary femoral guide was placed for a 5-degree valgus cut, removing 12 mm off the distal femur. The saw was used to make the cut. Whitesides line and the trans epicondylar axis were marked. The femoral sizing guide was pinned onto the distal femur. Three degrees of external rotation nicely parallels the transepicondylar axis. Pins were placed for posterior referencing. The four-in-one cutting guide was pinned onto the distal femur. The anterior, posterior, and chamfer cuts were made. The city carrier assistant protected the collateral ligaments. The box cutting guide was pinned. The box cuts were made. The boxed trial was placed and was an excellent fit. Drill holes for the lugs were made. Attention was then turned to the proximal tibia. The extramedullary tibial guide was placed for a neutral varus/valgus cut with 5 degrees of posterior slope, removing 2 mm based off the medial tibial surface. The city carrier assistant protected the collateral ligaments and the neurovascular bundle. The saw was used to make the cut. Trial components were placed. The knee was nicely balanced in both flexion and extension. The trial components were removed. The tray was placed in appropriate rotation, parallel to our tibial cutting pins. It was pinned by the city carrier assistant and the drill and the punch were used. The tray was removed. The punch was used again. We placed a bone plug in the femoral canal. Attention was then turned to the patella. [place] patellar thickness was 25 mm. The lobster claw resection guide was used with the 9.5 mm ricardo. The saw was used to make the cut. Drill holes were made by the city carrier assistant. The trial was placed and was an excellent fit. Cancellous surfaces were irrigated with pulse lavage and thoroughly dried by the city carrier assistant. We cemented the tibial component, then the femoral component. We impacted the 5 mm polyethylene onto the tibial tray. The knee was brought into full extension. We then cemented the patellar component. Excessive cement was removed. The cement was allowed to harden. The knee was taken through a range of motion and was found to be nicely balanced in both flexion and extension. The patella tracks centrally. The city carrier assistant did a three minute dilute Betadine solution soak. The city carrier assistant irrigated the wound with 3 liters of normal saline via pulse lavage. The city carrier assistant reapproximated the extensor mechanism with #1 Vicryl in an interrupted nbwgyd-xe-naees fashion. The city carrier assistant then ran the extensor mechanism with a #1 PDO Stratafix. The city carrier assistant closed the subcutaneous tissues with a 3-0 Stratafix and the skin with a running 3-0 Stratafix in a subcuticular fashion. Glue was used to seal the skin. The city carrier assistant placed a dry dressing, KING stocking, and Polar Care. Sponge and needle counts were correct x2. The patient tolerated the procedure well. There were no apparent complications. They were carefully transferred to the hospital bed and taken to the postanesthesia care unit in satisfactory condition. PLAN: The patient will be mobilized with physical therapy. Aspirin will be used for DVT prophylaxis. They will be discharged to home once medically appropriate.
--- NOTE | 2022-06-25 13:11 | W.ANESCHARGE ---
Anesthesia Charges Start Date/Time Anesthesia Start Date: 06/25/22 Anesthesia Start Time: 10:58 Stop Date/Time Anesthesia Stop Date: 06/25/22 Anesthesia Stop Time: 13:09 Summary Emergency: No Extremes of Age: Over 71-CPT 42684
--- NOTE | 2022-06-25 14:52 | W.ANESCHARGE ---
Anesthesia Charges Start Date/Time Anesthesia Start Date: 06/25/22 Anesthesia Start Time: 10:58 Stop Date/Time Anesthesia Stop Date: 06/25/22 Anesthesia Stop Time: 13:09 Summary Emergency: No Extremes of Age: Over 71-CPT [id number]
--- NOTE | 2022-06-25 15:42 | PC.NURSE ---
PATIENT ARRIVED TO FLOOR AROUND 1340, ALERT AND ORIENTED, PLEASANT AND COOPERATIVE, DRESSING TO LEFT KNEE CDI, CYROCUFF TO SITE, DECLINING PAIN, PEDAL PULSES PRESENT, TOLERATING FLUIDS AND FOOD, DECLINING NAUSEA/DIZZINESS/LIGHTHEADEDNESS.
--- NOTE | 2022-06-25 17:08 | P.IMCN_ITS ---
Date of Consult Patient: Myranda Patient Consult date: 06/25/22 Requesting Physician: Orthopedics Primary Care Provider: Zaid Wu MD Consult Narrative Reason for consult: Medical management of comorbidities Narrative: Berlin Almanzar is a 71 year old male who presented to the hospital today for an elective left TKA. There were no surgical or anesthetic complications noted during procedure. Patient's H&P reviewed, PCP is Dr. Wu at the [facility]. Past medical history significant for: BPH, subarachnoid hemorrhage in May of 2021. Neurology at [place] as recommended that risk/benefits are weight prior to any anticoagulant use. Patient had a right TKA in December and did not take postoperative pharmacologic prophylaxis; he purchased battery operated SCDs which worked well for him in the postoperative period. History of blood clots: No Postoperative plan: Home, son lives locally and visits regular Review of Systems Status of ROS: Reports: 10 or more systems reviewed and unremarkable except as noted in History and below PFSH PFS Medical History (Updated 06/25/22 @ 17:17 by Lala Dejesus MD) Cerebral amyloid angiopathy Cerebral hemorrhage Heart murmur Insomnia Pain of left side of body Paresthesia Surgical History (Updated 06/25/22 @ 17:14 by Lala Dejesus MD) H/O eye surgery History of hernia repair (~04/25/21) Status post total knee replacement, right (01/06/22) Family History Mother CHF (congestive heart failure) Father Heart attack High blood pressure Father ETOH abuse Brother Pacemaker COPD (chronic obstructive pulmonary disease) Sister A-fib Mother High blood pressure Social History Narrative: He lives at home alone. 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 Closest family is his son Winston who lives in [place]. Winston is his healthcare power of tax associate attorney. His code status is full. Highest level of school completed/degree received: high school graduate Smoking Status: Former smoker Do you use any of these nicotine containing products: None Second hand tobacco smoke exposure: No How often do you have a drink containing alcohol: never AUDIT-C Alcohol total score: 0 Non-prescribed substance use: denies use Caffeine: Yes (occ coffee) service: No Meds Home Medications and Allergies Home Medications Medication Instructions Recorded Confirmed Type acetaminophen 500 mg tablet 1,000 mg PO HS PRN 01/05/22 06/25/22 History tamsulosin 0.4 mg capsule 0.4 mg PO Q24H 01/05/22 06/25/22 History Allergies Allergy/AdvReac Type Severity Reaction Status Date / Time No Known Allergies Allergy Verified 06/25/22 07:51 Exam Narrative: Exam Narrative: GEN: Alert and oriented, answering questions appropriately. Nontoxic in appearance HEENT: Normal external ears, EOMIs bilaterally, no scleral icterus CV: RRR, No concerning murmurs, rubs, or gallops R: LCTA bilaterally without concerning wheezing, rales, or rhonchi, air movement adequate Ext: wwp, no concerning edema Skin: No concerning skin lesions or rashes on exposed skin Neuro: Nonfocal Psych: Appropriate Const: Vital Signs, click to edit/add: Vital Signs - 24 hr 06/25/22 08:25 06/25/22 10:15 06/25/22 10:20 Temperature 97.2 F L Pulse Rate 70 59 L 56 L Pulse Rate [Left P ulse Oximeter] Respiratory Rate 16 16 16 Blood Pressure 124/88 144/92 H 137/80 Blood Pressure [Ri ght Arm] Pulse Oximetry 97 100 100 Oxygen Delivery Me thod Room Air Nasal Cannula Nasal Cannula Oxygen Flow Rate 2 2 06/25/22 10:30 06/25/22 13:04 06/25/22 13:30 Temperature 97.3 F L 96.5 F L Pulse Rate 59 L 55 L 55 L Pulse Rate [Left P ulse Oximeter] Respiratory Rate 16 12 18 Blood Pressure 110/74 92/61 105/70 Blood Pressure [Ri ght Arm] Pulse Oximetry 100 100 97 Oxygen Delivery Me thod Nasal Cannula Room Air Oxygen Flow Rate 2 0 06/25/22 13:10 06/25/22 13:15 06/25/22 13:20 Temperature 97.3 F L 97.3 F L 97.3 F L Pulse Rate 52 L 51 L 54 L Pulse Rate [Left P ulse Oximeter] Respiratory Rate 12 16 12 Blood Pressure 98/66 102/70 99/66 Blood Pressure [Ri ght Arm] Pulse Oximetry 100 100 100 Oxygen Delivery Me thod Nasal Cannula Nasal Cannula Nasal Cannula Oxygen Flow Rate 2 6 6 06/25/22 13:25 06/25/22 13:35 06/25/22 13:39 Temperature 97.3 F L 96.5 F L 95.6 F L Pulse Rate 51 L 57 L 58 L Pulse Rate [Left P ulse Oximeter] Respiratory Rate 12 16 16 Blood Pressure 104/69 112/66 Blood Pressure [Ri ght Arm] 105/73 Pulse Oximetry 100 97 Oxygen Delivery Me thod Nasal Cannula Room Air Room Air Oxygen Flow Rate 6 0 0 06/25/22 13:45 06/25/22 14:00 06/25/22 14:15 Temperature 95.5 F L Pulse Rate Pulse Rate [Left P ulse Oximeter] 63 58 L 59 L Respiratory Rate 14 16 16 Blood Pressure Blood Pressure [Ri ght Arm] 114/81 106/81 104/94 H Pulse Oximetry 98 94 97 Oxygen Delivery Me thod Room Air Room Air Room Air Oxygen Flow Rate 0 0 0 06/25/22 14:30 06/25/22 14:45 06/25/22 15:00 Temperature 95.5 F L Pulse Rate Pulse Rate [Left P ulse Oximeter] 64 57 L 62 Respiratory Rate 16 16 16 Blood Pressure Blood Pressure [Ri ght Arm] 109/64 112/69 Pulse Oximetry 99 98 100 Oxygen Delivery Me thod Room Air Room Air Room Air Oxygen Flow Rate 0 0 0 06/25/22 15:30 06/25/22 16:00 06/25/22 15:30 Temperature 95.5 F L 95.5 F L Pulse Rate Pulse Rate [Left P ulse Oximeter] 62 62 Respiratory Rate 16 16 Blood Pressure Blood Pressure [Ri ght Arm] 121/71 118/82 Pulse Oximetry 99 99 99 Oxygen Delivery Me thod Room Air Room Air Oxygen Flow Rate 0 0 Assessment and Plan Assessment and plan (1) History of total knee arthroplasty: Problem comment: - LEFT, 06/25/22 Status: Acute (2) Cerebral amyloid angiopathy: Problem comment: - with SAH in 06/17. Patient at increased risk for intracerebral hemorrhage with antiplatelet and anticoagulation medicines - recommend against pharmacologic anticoagulation postoperatively given this history Status: Acute Plan - pain management per Orthopedic surgery team - recommend deferring pharmacologic anticoagulation given subarachnoid hemorrhage history with cerebral amyloid angiopathy - Patient has battery operated SCDs at home, which worked well after his right TKA in December
[2022-06-25] MEDS: CEFAZOLIN 2 GM in 0.9 % SODIUM CHLORIDE Mini-bag 100 ML IVPB (17:29)
[2022-06-25] MEDS: OXYCODONE 5 MG TABLET PO ×2 (17:45→20:05)
[2022-06-25] MEDS: SENNOSIDES 1 TAB TABLET 2 TAB PO (20:06)
[2022-06-25] MEDS: LACTATED RINGERS 1000 ML 1,000 ML 75 ML IV (21:24)
--- NOTE | 2022-06-25 23:39 | PC.NURSE ---
Shift [id number]- Patient is up with assist of 1, walker and gait belt and tolerates well. Up to chair this evening. He is voiding. Pain is well controlled with PRN pain medication. He seems to have had incontinent episode while in bed, not up yet from sx. He is tolerating diet without issue.
[2022-06-26] MEDS: OXYCODONE 5 MG TABLET PO ×2 (01:12→08:36)
[2022-06-26] MEDS: MELATONIN 3 MG TABLET PO (01:13)
[2022-06-26] MEDS: CEFAZOLIN 2 GM in 0.9 % SODIUM CHLORIDE Mini-bag 100 ML IVPB ×2 (01:25→09:45)
[2022-06-26 01:37] VITALS: RESP 16; O2SAT 97
[2022-06-26 03:00] VITALS: RESP 16
[2022-06-26 06:35] LABS: Hematocrit 33.2 % (37.0-53.0); Hemoglobin* 10.8 gm/dL (13.5-17.5); Immature Granulocytes Abs Auto 0.02 K/uL (0.00-0.30); Immature Granulocytes Pct Auto 0.2 %; Lymphocytes Percent Auto 13.3 % (20-44); Mean Corpuscular HGB Conc 33 gm/dL (32-36); Mean Corpuscular Hemoglobin 29 pg (26-34); Mean Corpuscular Volume 89 fL (80-100); Monocytes Percent Auto 6.6 % (0.0-11.0); Neutrophils Percent Auto 79.9 % (42.0-72.0); Platelet Count* 230 K/uL (140-440); RDW Coefficient of Variation % 12.9 % (11.5-15.5); Red Blood Count 3.74 m/uL (4.30-5.90); White Blood Count* 9.35 K/uL (4.50-11.00)
[2022-06-26 06:46] LABS: Potassium* 4.3 mmol/L (3.6-5.1); Sodium* 136 mmol/L (135-149)
[2022-06-26 06:49] LABS: Creatinine* 0.6 mg/dL (0.5-1.5); Est. Creatinine Clearance* 62.03; Estimated Glomerular Filt Rate 104 ml/min
[2022-06-26 06:50] LABS: Blood Urea Nitrogen* 16 mg/dL (7-30)
[2022-06-26 06:52] LABS: Slide Review Reflex No
[2022-06-26 07:00] VITALS: BP 132/87; PULSE 83; RESP 16; TEMP 36.5; O2SAT 95
[2022-06-26 07:00] LABS: Prothrombin Time 14.8 Seconds
--- NOTE | 2022-06-26 08:20 | PC.NURSE ---
End of shift status [id number] Pt alert and oriented. PRN oxy and melatonin given x1. VSS on room air. Up with stand by/assist of 1 and walker. IV ancef given. Using urinal independently in bed overnight. CMS intact to left leg. Dressing CDI. Pt observed resting between cares.
--- NOTE | 2022-06-26 08:27 | PM.ORPN ---
Subjective Subjective Time Seen by Provider: 07:10 Date Seen: 06/26/22 Principal diagnosis: Status post left total knee arthroplasty Interval history: Berlin is comfortable this morning. He will be discharging to. He had his right knee replaced in December and he use SCDs and frequent ambulation and Payam stockings for DVT prophylaxis. Ortho Exam Narrative Exam Narrative: Alert and oriented x3. Patient is in no acute distress. Converses without labored breathing. Hearing is grossly intact. Examination of the left knee shows mild soft tissue edema. Bilateral calves are soft and nontender. CMS intact left lower extremity good quad strength. Const Vital Signs, click to edit/add: Vital Signs - 24 hr 06/25/22 10:15 06/25/22 10:20 06/25/22 10:30 Temperature Pulse Rate 59 L 56 L 59 L Pulse Rate [Left Pulse Oximeter] Respiratory Rate 16 16 16 Blood Pressure 144/92 H 137/80 110/74 Blood Pressure [Right Arm] Pulse Oximetry 100 100 100 Oxygen Delivery Method Nasal Cannula Nasal Cannula Nasal Cannula Oxygen Flow Rate 2 2 2 06/25/22 13:04 06/25/22 13:30 06/25/22 13:10 Temperature 97.3 F L 96.5 F L 97.3 F L Pulse Rate 55 L 55 L 52 L Pulse Rate [Left Pulse Oximeter] Respiratory Rate 12 18 12 Blood Pressure 92/61 105/70 98/66 Blood Pressure [Right Arm] Pulse Oximetry 100 97 100 Oxygen Delivery Method Room Air Nasal Cannula Oxygen Flow Rate 0 2 06/25/22 13:15 06/25/22 13:20 06/25/22 13:25 Temperature 97.3 F L 97.3 F L 97.3 F L Pulse Rate 51 L 54 L 51 L Pulse Rate [Left Pulse Oximeter] Respiratory Rate 16 12 12 Blood Pressure 102/70 99/66 104/69 Blood Pressure [Right Arm] Pulse Oximetry 100 100 100 Oxygen Delivery Method Nasal Cannula Nasal Cannula Nasal Cannula Oxygen Flow Rate 6 6 6 06/25/22 13:35 06/25/22 13:39 06/25/22 13:45 Temperature 96.5 F L 95.6 F L Pulse Rate 57 L 58 L Pulse Rate [Left Pulse Oximeter] 63 Respiratory Rate 16 16 14 Blood Pressure 112/66 Blood Pressure [Right Arm] 105/73 114/81 Pulse Oximetry 97 98 Oxygen Delivery Method Room Air Room Air Room Air Oxygen Flow Rate 0 0 0 06/25/22 14:00 06/25/22 14:15 06/25/22 14:30 Temperature 95.5 F L 95.5 F L Pulse Rate Pulse Rate [Left Pulse Oximeter] 58 L 59 L 64 Respiratory Rate 16 16 16 Blood Pressure Blood Pressure [Right Arm] 106/81 104/94 H Pulse Oximetry 94 97 99 Oxygen Delivery Method Room Air Room Air Room Air Oxygen Flow Rate 0 0 0 06/25/22 14:45 06/25/22 15:00 06/25/22 15:30 Temperature 95.5 F L Pulse Rate Pulse Rate [Left Pulse Oximeter] 57 L 62 62 Respiratory Rate 16 16 16 Blood Pressure Blood Pressure [Right Arm] 109/64 112/69 121/71 Pulse Oximetry 98 100 99 Oxygen Delivery Method Room Air Room Air Room Air Oxygen Flow Rate 0 0 0 06/25/22 16:00 06/25/22 15:30 06/25/22 17:00 Temperature 95.5 F L 96.4 F L Pulse Rate Pulse Rate [Left Pulse Oximeter] 62 56 L Respiratory Rate 16 16 Blood Pressure Blood Pressure [Right Arm] 118/82 135/83 Pulse Oximetry 99 99 99 Oxygen Delivery Method Room Air Room Air Oxygen Flow Rate 0 0 06/25/22 18:00 06/25/22 19:00 06/25/22 20:00 Temperature 96.9 F L Pulse Rate Pulse Rate [Left Pulse Oximeter] 96 86 96 Respiratory Rate 16 16 16 Blood Pressure Blood Pressure [Right Arm] 149/107 H 152/104 H 148/60 H Pulse Oximetry 98 98 99 Oxygen Delivery Method Room Air Room Air Room Air Oxygen Flow Rate 0 0 0 06/26/22 01:37 06/26/22 01:37 06/26/22 03:00 Temperature Pulse Rate Pulse Rate [Left Pulse Oximeter] Respiratory Rate 16 16 Blood Pressure Blood Pressure [Right Arm] Pulse Oximetry 97 Oxygen Delivery Method Oxygen Flow Rate Assessment and Plan Assessment and plan (1) History of total knee arthroplasty: Problem details: - LEFT, 06/25/22 Status: Acute Assessment and Plan: Plan for discharge is today to home if they meet discharge criteria. DVT prophylaxis includes SCDs, Payam stockings x1 month may remove for 1 hr per day, frequent ambulation Remove dressing in 1 week. Observe wound and phone Orthopedics with any questions or concerns Return to clinic in 1 week for a wound check Return to clinic in [address] Mcfarland Minimize narcotic use. Wean off and discontinue soon as possible. Activities as tolerated. No strenuous activity. Outpatient physical therapy as scheduled. Ice and elevate the operative extremity. No restriction on ice. (2) Cerebral amyloid angiopathy: Problem details: - with SAH in 06/17. Patient at increased risk for intracerebral hemorrhage with antiplatelet and anticoagulation medicines - recommend against pharmacologic anticoagulation postoperatively given this history Status: Acute
[2022-06-26] MEDS: SENNOSIDES 1 TAB TABLET 2 TAB PO (08:36)
[2022-06-26] MEDS: ACETAMINOPHEN 500 MG TABLET 1000 MG PO (08:36)
[2022-06-26 09:38] VITALS: BP 112/66; PULSE 58; RESP 16; TEMP 36.5
--- NOTE | 2022-06-26 11:29 | PC.NURSE ---
PATIENT DISCHARGED TO HOME WITH FAMILY SUPPORT, ALERT AND ORIENTED, UP SBA WITH WALKER AND BELT TOLERATING WELL, TOILETING REGULAR DIET NO NAUSEA OR VOMITING, DRESSING TO LEFT KNEE CDI, CYRO CUFF TO SITE, RATING PAIN 5/10 BEING MANAGED WITH PRN OXYCODONE AND SCHEDULED TYLENOL, PATIENT VERBALIZED UNDERSTANDING OF DISCHARGE INFORMATION AND HAD NO FURTHER QUESTIONS, IV REMOVED, BELONGS SENT WITH PATIENT, PATIENT LEFT TO HOME WITH FAMILY VIA WHEELCHAIR AROUND 1050.
== END 2022-06-26 10:50 | disposition home or self-care (01) ==
LOC: OR 07:29 → MEDSURG 07:48
PROVIDERS: PCP Family Medicine; Visit Provider Orthopaedic Surgery
PROC: (CPT 27447; principal; 2022-06-25 09:45)
DX: M17.12 Unilateral primary osteoarthritis, left knee (principal); M25.562 Pain in left knee; E85.4 Organ-limited amyloidosis; I68.0 Cerebral amyloid angiopathy
CPT/HCPCS: 27447; 01402; 36415; 64447; 64454; 73560; 76942; 82565; 84132; 84295; 84520; 85025; 85610; 97110; 97116; 97161; 97165; 97535; 99100; A9270; C1776; J0690; J1100; J2250; J2405; J2704; J2795; J3010; J7120

== ENCOUNTER 2022-07-21 13:00 | Outpatient (RCR) | payer MEDICARE, SELFPAY ==
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
== END 2022-08-10 16:49 | disposition home or self-care (01) ==
PROVIDERS: PCP Family Medicine; Visit Provider Orthopaedic Surgery
DX: Z96.652 Presence of left artificial knee joint (principal); Z51.89 Encounter for other specified aftercare
CPT/HCPCS: 97110; 97162

== ENCOUNTER 2024-02-11 20:48 | Outpatient (CLI) | payer MEDICARE, SELFPAY | END 2024-02-11 20:49 | disposition home or self-care (01) | LOC: AMB 02-12 23:31 | PROVIDERS: PCP Family Medicine; Visit Provider Family Medicine | DX: M54.50 Low back pain, unspecified (principal) | CPT/HCPCS: A0425; A0433 ==

== ENCOUNTER 2024-02-11 21:49 | Emergency (ER) | payer MEDICARE, SELFPAY ==
--- NOTE | 2024-02-11 21:52 | ED_ITS ---
HPI - General Adult General Date Seen: 02/11/24 Chief complaint: Back Injury/Pain Stated complaint: Back pain Time Seen by Provider: 02/11/24 21:51 Source: patient and EMS Mode of arrival: EMS Limitations: no limitations History of Present Illness HPI narrative: Patient is a 73-year-old male presenting to the emergency department for low back pain. The symptoms have been going on for the past 3 days. He states 3 days ago he picked up a motor for a golf cart and then later that evening he was feeling severe low back pain. He has not remember any other time where he could have hurt his back. Does have a history of back issues in the past they states his back is never hurt this bad before. States the pain has been so bad he has been unable to be all bed for the past 3 days. He has not been taking anything at home for pain other than Tylenol with minimal improvement in his symptoms. Was given fentanyl by EMS which he states has improved his symptoms. States he has been urinating normally an a urine all. Denies any urinary retention. States he has some numbness at the base of his low back but denies saddle anesthesia. Has not had a bowel movement since Wednesday. Denies numbness of the legs. Says the pain does radiate down both posterior thighs fci down the thigh. Denies numbness to the legs. Is able to move his legs. Is not aware if he has ever had herniated disc before Related Data Home Medications ?Medication ?Instructions ?Recorded ?Confirmed acetaminophen 500 mg tablet 1,000 mg PO HS PRN 01/05/22 12/21/22 tamsulosin 0.4 mg capsule 0.4 mg PO Q24H 01/05/22 12/21/22 Allergies Allergy/AdvReac Type Severity Reaction Status Date / Time No Known Allergies Allergy Verified 08/10/22 13:43 NSAIDS (Non-Steroidal AdvReac Verified 12/21/22 13:14 Anti-Inflamma Review of Systems Status of ROS: Reports: 10 or more systems reviewed and unremarkable except as noted in History and below [facility] Medical History Cerebral amyloid angiopathy ?E85.4 - Organ-limited amyloidosis (ICD-10) ?I68.0 - Cerebral amyloid angiopathy (ICD-10) Cerebral hemorrhage ?I61.9 - Nontraumatic intracerebral hemorrhage, unspecified (ICD-10) Paresthesia ?R20.2 - Paresthesia of skin (ICD-10) Pain of left side of body ?R52 - Pain, unspecified (ICD-10) Insomnia ?G47.00 - Insomnia, unspecified (ICD-10) Heart murmur ?R01.1 - Cardiac murmur, unspecified (ICD-10) Surgical History History of right inguinal hernia repair (01/09/21) ?Z98.890 - Other specified postprocedural states (ICD-10) ?Z87.19 - Personal history of other diseases of the digestive system (ICD-10) History of total knee arthroplasty (06/25/22) ?Z96.659 - Presence of unspecified artificial knee joint (ICD-10) Status post total knee replacement, right (01/06/22) ?Z96.651 - Presence of right artificial knee joint (ICD-10) H/O eye surgery ?Z98.890 - Other specified postprocedural states (ICD-10) Family History , RN) Mother CHF (congestive heart failure) Father Myocardial infarction High blood pressure Father ETOH abuse Brother Pacemaker COPD (chronic obstructive pulmonary disease) Sister A-fib Mother High blood pressure Social History (Reviewed 07/23/22 @ 14:00 by Luciana Pendleton ~ [facility], [employer]) Narrative: He lives at home alone. He is self-employed doing work on [employer]. Closest family is his son Winston who lives in [place]. Winston is his healthcare power of deputy prosecuting attorney. His code status is full. Highest level of school completed/degree received: high school graduate Smoking Status: Former smoker Do you use any of these nicotine containing products: None Second hand tobacco smoke exposure: No How often do you have a drink containing alcohol: never AUDIT-C Alcohol total score: 0 Non-prescribed substance use: denies use Caffeine: Yes (occ coffee) service: No Exam Narrative: Exam Narrative: Const: Well-nourished, Well-developed, in moderate distress Eyes: PERRL, no conjunctival injection, and symmetrical lids HENT: Atraumatic external nose and ears. Moist mucous membranes. Neck: Symmetric, trachea midline, No thyromegaly. CVS: RRR, No murmurs or gallops. Peripheral pulses 2+ and equal in all extremities RESP: Unlabored respiratory effort. Clear to auscultation bilaterally. GI: Nontender/Nondistended, No rebound or guarding. Normal sphincter tone MSK:Extremities w/o deformity, Normal Active ROM to everything but the low back secondary to pain. Is able to lift both legs off the bed. mild to tenderness to palpation lower lumbar region and paraspinal Skin: Warm, Dry. No rashes or lesions. Neuro: Normal Muscle tone, No focal neurological deficits. Psych: Awake, Alert, & Oriented x3. Appropriate mood and affect. Const: Vital Signs, click to edit/add: Vital Signs - 24 hr 02/11/24 21:56 Temperature 97.0 F L Pulse Rate [Left P ulse Oximeter] 70 Respiratory Rate 16 Blood Pressure [Ri ght Upper Arm] 123/90 H Pulse Oximetry 97 Oxygen Delivery Me thod Room Air Course Vital Signs Vital signs: Initial Vital Signs Temperature 97.0 F L 02/11/24 21:56 Temperature Source Temporal Artery Scan 02/11/24 21:56 Pulse Rate 70 02/11/24 21:56 Pulse Rhythm Regular 02/11/24 21:56 Respiratory Rate 16 02/11/24 21:56 Blood Pressure 123/90 H 02/11/24 21:56 Blood Pressure Mean 101 02/11/24 21:56 Blood Pressure Position Sitting 02/11/24 21:56 Pulse Oximetry 97 02/11/24 21:56 Oxygen Delivery Method Room Air 02/11/24 21:56 Vital Signs Temperature 97.0 F L 02/11/24 21:56 Pulse Rate 70 02/11/24 21:56 Respiratory Rate 16 02/11/24 21:56 Blood Pressure 123/90 H 02/11/24 21:56 Pulse Oximetry 97 02/11/24 21:56 Oxygen Delivery Method Room Air 02/11/24 21:56 Temperature 97.0 F L 02/11/24 21:56 Pulse Rate 70 02/11/24 21:56 Respiratory Rate 16 02/11/24 21:56 Blood Pressure 123/90 H 02/11/24 21:56 Pulse Oximetry 97 02/11/24 21:56 Oxygen Delivery Method Room Air 02/11/24 21:56 Medications Administered Medications: Generic Name Dose Route Start Last Admin Trade Name Danielito PRN Reason Stop Dose Admin Oxycodone HCl 5 mg 02/11/24 23:40 02/11/24 23:57 Oxycodone 5 Mg Tablet PO 02/11/24 23:41 5 mg ONCE ONE Administration Prednisone 50 mg 02/11/24 23:42 02/11/24 23:57 Prednisone 10 Mg Tablet PO 02/11/24 23:43 50 mg ONCE ONE Administration Discontinued Medications Generic Name Dose Route Start Last Admin Trade Name Lauroq PRN Reason Stop Dose Admin Oxycodone HCl 5 mg 02/11/24 22:26 02/11/24 22:41 Oxycodone 5 Mg Tablet PO 02/11/24 22:27 5 mg ONCE ONE Administration Medical Decision Making MDM Narrative Medical decision making narrative: Patient is 73-year-old male presenting to emergency department for low back pain. Is not having any red flag symptoms for cauda equina at this time. Will do a CT of the lumbar spine to better evaluate his back though. Oxycodone given for pain. CT lumbar spine returned showing no acute abnormalities. Symptoms might be related to a herniated disc. Oxycodone he states not help his symptoms. Patient feels as if he cannot go home tonight due to the pain. I explained to him that he would be an observation patient and everything that entails including the costs. He states he understands. He would rather stay at least 1 night even if it will place have financial burden on him. Working prior to admit him to when he then he spoke to his son is states he can help him at home and he should not stay in hospital it was going to cost him a lot of money. At this time patient like to try another oxycodone. This will be provided and I will also give him steroids. Patient now wants to be discharged and will go home with his son. Was sent oxycodone and prednisone to [facility]. Imaging Data Lumbar spine CT: Radiologist's impression: Chronic findings as above with no acute abnormality appreciated. Please note that all CT scans at this facility use dose modulation, iterative reconstruction, and/or weight-based dosing when appropriate to reduce radiation dose to as low as reasonably achievable. 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 Start taking the prednisone tomorrow afternoon/evening as directed. Follow-up with your primary care provider if symptoms persist. Prescriptions: No Action tamsulosin 0.4 mg capsule 0.4 mg PO Q24H Patient Comments: Take 1 Capsule (0.4 mg) by mouth once daily after a meal. acetaminophen 500 mg tablet 1,000 mg PO HS PRN Follow Up/Referrals: Zaid Wu MD [Primary Care Provider] - Stand Alone Forms: [employer] Info Instructions
[2024-02-11 21:56] VITALS: BP 123/90; PULSE 70; RESP 16; TEMP 36.1; O2SAT 97; BMI 31.3
--- NOTE | 2024-02-11 22:07 | CRLHL7_ITS ---
For Patients: As a result of the Century Cures Act, medical imaging exams and procedure reports are released immediately into your electronic medical record. You may view this report before your referring provider. If you have questions, please contact your health care provider. Indication: Back pain with straightening Technique: Noncontrast CT through the lumbar spine with multiplanar reformats Comparison: None Findings: Alignment: Moderate L5-S1 anterolisthesis. Bones: L5 pars defects. Schmorl`s nodes noted at L3 and L4 with slight chronic compression of L4. Prior left sacroiliitis suspected. Lumbar levels: No acute abnormality appreciated. [id number] multilevel degenerative changes with severe foraminal narrowing at L5-S1 bilaterally. Soft tissues: No acute abnormality appreciated. Impression: Chronic findings as above with no acute abnormality appreciated. Please note that all CT scans at this facility use dose modulation, iterative reconstruction, and/or weight-based dosing when appropriate to reduce radiation dose to as low as reasonably achievable. Dictated by Antony Spain MD @ 02/11/2024 11:15:25 PM (Electronically Signed)
[2024-02-11] MEDS: OXYCODONE 5 MG TABLET PO ×2 (22:41→23:57)
[2024-02-11] MEDS: predniSONE 10 MG TABLET 50 MG PO (23:57)
== END 2024-02-12 00:31 | disposition home or self-care (01) ==
PROVIDERS: Emergency Provider Student in an Organized Health Care Education/Training Program; PCP Family Medicine
DX: M54.16 Radiculopathy, lumbar region (principal)
CPT/HCPCS: 72131; 99283; A9270; J7512

== ENCOUNTER 2024-03-05 09:19 | Emergency (ER) | payer MEDICARE, SELFPAY ==
[2024-03-05 09:33] VITALS: BP 167/111; PULSE 64; RESP 18; TEMP 36.5; O2SAT 99; BMI 28.1
--- NOTE | 2024-03-05 10:10 | ED.GENADULT ---
HPI - General Adult General Time Seen by Provider: 10:10 Date Seen: 03/05/24 Chief complaint: Back Injury/Pain Stated complaint: R side pain starting at back, abdomen and left Time Seen by Provider: 03/05/24 10:04 Source: patient and RN notes reviewed Mode of arrival: ambulatory Limitations: no limitations History of Present Illness HPI narrative: This 73-year-old male is accompanied by his son coming in with complaint of right low back pain, pain going into his right hip and groin, pain into his right thigh. He was diagnosed with a lumbar radiculopathy here in the ER on February 10, did have a CT at the time. This started after lifting. He did take prednisone, was feeling better, did follow up in clinic. He was doing so much better that nothing further was needed. This past week he did mow the lawn on the riding lawn more on Wednesday. The next couple of days after that his back started to bother him more. There are no fevers or chills, no numbness tingling, no loss of bowel or bladder function, no saddle anesthesia. He was feeling groin pain to the point that he had his doctor check him for hernia during his follow-up. The groin pain is back again, also has pain going into the upper thigh. He has Tylenol at home, this is not sufficient. He notes the steroids really did help him. Related Data Home Medications ?Medication ?Instructions ?Recorded ?Confirmed acetaminophen 500 mg tablet 1,000 mg PO HS PRN 01/05/22 03/05/24 tamsulosin 0.4 mg capsule 0.4 mg PO Q24H 01/05/22 03/05/24 Previous Rx's ?Medication ?Instructions ?Recorded oxycodone 5 mg tablet 5 mg PO Q6H PRN pain #10 tabs 03/05/24 prednisone 20 mg tablet 20 mg PO BID #10 tabs 03/05/24 Allergies Allergy/AdvReac Type Severity Reaction Status Date / Time No Known Allergies Allergy Verified 03/05/24 09:40 NSAIDS (Non-Steroidal AdvReac Verified 03/05/24 09:40 Anti-Inflamma Review of Systems Narrative: As per HPI. [facility] Medical History Cerebral amyloid angiopathy ?E85.4 - Organ-limited amyloidosis (ICD-10) ?I68.0 - Cerebral amyloid angiopathy (ICD-10) Cerebral hemorrhage ?I61.9 - Nontraumatic intracerebral hemorrhage, unspecified (ICD-10) Paresthesia ?R20.2 - Paresthesia of skin (ICD-10) Pain of left side of body ?R52 - Pain, unspecified (ICD-10) Insomnia ?G47.00 - Insomnia, unspecified (ICD-10) Heart murmur ?R01.1 - Cardiac murmur, unspecified (ICD-10) Surgical History History of right inguinal hernia repair (01/09/21) ?Z98.890 - Other specified postprocedural states (ICD-10) ?Z87.19 - Personal history of other diseases of the digestive system (ICD-10) History of total knee arthroplasty (06/25/22) ?Z96.659 - Presence of unspecified artificial knee joint (ICD-10) Status post total knee replacement, right (01/06/22) ?Z96.651 - Presence of right artificial knee joint (ICD-10) H/O eye surgery ?Z98.890 - Other specified postprocedural states (ICD-10) Family History Mother CHF (congestive heart failure) Father Myocardial infarction High blood pressure Father ETOH abuse Brother Pacemaker COPD (chronic obstructive pulmonary disease) Sister A-fib Mother High blood pressure Social History Narrative: He lives at home alone. 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 Closest family is his son Winston who lives in [place]. Winston is his healthcare power of privacy attorney. His code status is full. Highest level of school completed/degree received: high school graduate Smoking Status: Former smoker Do you use any of these nicotine containing products: None Second hand tobacco smoke exposure: No How often do you have a drink containing alcohol: never How often do you have six or more drinks on one occasion: Never AUDIT-C Alcohol total score: 0 Non-prescribed substance use: denies use Caffeine: Yes (occ coffee) service: No Exam Const: Vital Signs, click to edit/add: Vital Signs - 24 hr 03/05/24 09:33 Temperature 97.7 F Pulse Rate [Right Pulse Oximeter] 64 Respiratory Rate 18 Blood Pressure [Ri ght Upper Arm] 167/111 H Pulse Oximetry 99 Oxygen Delivery Me thod Room Air This 73-year-old male is alert, interactive, seems to have pain with any movement. No midline tenderness of his spine but there is paraspinous tenderness in the right side, feel no mass. He has a positive straight leg raise on the right at about 40? off the bed, negative on the left. Strength is 5/5 and symmetric in his right lower extremity. He is able to fully mobilize isolated joints of his right hip, knee, ankle, does not seem to be any joint pathology that is isolated. There is no point tenderness throughout the lower extremity. Sensation is intact. He does have some palpable right sciatic notch tenderness and general pain when I palpate in his right buttock area. Documenting provider has reviewed patient's vital signs: yes Course Course ED Course: Discussed with patient and his son that I do think that this is recurrent right lumbar radiculopathy. Will give him oral prednisone and oral oxycodone here. He has already had CT imaging and I do not think that redoing a lumbar CT is going to be of any benefit. We unfortunately do not have MRI capacity at this time nor does he needed emergently. I do think he needs to follow up in clinic in given that this is recurrent already, would have his primary consider doing a lumbar MRI and get him into physical therapy. In the meantime, will try to get his pain under control with some oxycodone and plan for discharge to home for further outpatient follow-up. Reevaluation(s) Time of Reevaluation #1: 11:13 Reevaluation #1: Brought in and anatomy book and reviewed spine anatomy with patient. We reviewed where the discs are, where the foramen are, potential sites of irritant pathology from lumbar radiculopathy. He is feeling much better. Will get him another course of prednisone, some pain management with oxycodone. He still has a stool softener at home that he takes will taking oxycodone. He did not suffer significant constipation while doing this when he use oxycodone last time. He understands that he needs to get back in the clinic, do recommend that he have a lumbar MRI and get scheduled for physical therapy. He will need to do this through his primary clinic. Vital Signs Vital signs: Initial Vital Signs Temperature 97.7 F 03/05/24 09:33 Temperature Source Temporal Artery Scan 03/05/24 09:33 Pulse Rate 64 03/05/24 09:33 Pulse Rhythm Regular 03/05/24 09:33 Respiratory Rate 18 03/05/24 09:33 Blood Pressure 167/111 H 03/05/24 09:33 Blood Pressure Mean 129 H 03/05/24 09:33 Blood Pressure Position Sitting 03/05/24 09:33 Pulse Oximetry 99 03/05/24 09:33 Oxygen Delivery Method Room Air 03/05/24 09:33 Vital Signs Temperature 97.7 F 03/05/24 09:33 Pulse Rate 64 03/05/24 09:33 Respiratory Rate 18 03/05/24 09:33 Blood Pressure 167/111 H 03/05/24 09:33 Pulse Oximetry 99 03/05/24 09:33 Oxygen Delivery Method Room Air 03/05/24 09:33 Temperature 97.7 F 03/05/24 09:33 Pulse Rate 64 03/05/24 09:33 Respiratory Rate 18 03/05/24 09:33 Blood Pressure 167/111 H 03/05/24 09:33 Pulse Oximetry 99 03/05/24 09:33 Oxygen Delivery Method Room Air 03/05/24 09:33 Medications Administered Medications: Discontinued Medications Generic Name Dose Route Start Last Admin Trade Name Danielito PRN Reason Stop Dose Admin Oxycodone HCl 5 mg 03/05/24 10:20 03/05/24 10:28 Oxycodone 5 Mg Tablet PO 03/05/24 10:21 5 mg ONCE ONE Administration Prednisone 60 mg 03/05/24 10:20 03/05/24 10:29 Prednisone 20 Mg Tablet PO 03/05/24 10:21 60 mg ONCE ONE Administration Discharge Plan Discharge Clinical Impression: Lumbar radiculopathy Patient Disposition: Home, Self-Care Condition: Stable Instructions: Lumbar Radiculopathy (ED) Additional Instructions: Start oral prednisone tomorrow morning, take as prescribed and take with food. Take Tylenol 1000 mg 3 times daily baseline for pain. Can supplement with the oxycodone prescribed for more severe pain. Cannot drive or operate machinery while on this narcotic. Take the stool softener you have at home while on the oxycodone. If you need further assistance to prevent constipation while taking oxycodone, can add in MiraLax. Follow bottle directions for MiraLax dosing. You need to follow up in clinic, call to schedule appointment tomorrow. See if they can put in a lumbar MRI order as well as physical therapy referral for you in the meantime. Activity Level: Activity as Tolerated Prescriptions: New prednisone 20 mg tablet 20 mg PO BID Qty: 10 0RF oxycodone 5 mg tablet 5 mg PO Q6H PRN (Reason: pain) Qty: 10 0RF No Action tamsulosin 0.4 mg capsule 0.4 mg PO Q24H Patient Comments: Take 1 Capsule (0.4 mg) by mouth once daily after a meal. acetaminophen 500 mg tablet 1,000 mg PO HS PRN Follow Up/Referrals: Zaid Wu MD [Primary Care Provider] - Stand Alone Forms: [employer] Info Instructions
[2024-03-05] MEDS: OXYCODONE 5 MG TABLET PO (10:28)
[2024-03-05] MEDS: predniSONE 20 MG TABLET 60 MG PO (10:29)
== END 2024-03-05 11:21 | disposition home or self-care (01) ==
PROVIDERS: Emergency Provider Family Medicine; PCP Family Medicine
DX: M54.16 Radiculopathy, lumbar region (principal)
CPT/HCPCS: 99283; A9270; J7512

== ENCOUNTER 2024-05-18 15:14 | Emergency (ER) | payer MEDICARE, SELFPAY ==
[2024-05-18 15:20] VITALS: BP 150/76; PULSE 73; RESP 18; TEMP 36.5; O2SAT 97; BMI 29.1
--- NOTE | 2024-05-18 17:03 | ED_ITS ---
HPI - General Adult General Date Seen: 05/18/24 Chief complaint: Unspecified Complaint, Adult Stated complaint: Mid line R arm removed accidently Time Seen by Provider: 05/18/24 15:55 Source: patient, RN notes reviewed and old records reviewed Mode of arrival: EMS Limitations: no limitations History of Present Illness HPI narrative: Patient is a 73-year-old male who is currently undergoing IV antibiotics, has a couple more weeks to go. He had a midline placed in his right arm. He was outside doing some work yesterday and he thinks he slightly dislodged at that time, and then when the home health nurse came today and took the dressing off the line fell out. Otherwise he said it had been working well, he had his 2 pm dose prior to a falling out. No other complaints. Related Data Home Medications ?Medication ?Instructions ?Recorded ?Confirmed acetaminophen 500 mg tablet 1,000 mg PO HS PRN 01/05/22 05/18/24 tamsulosin 0.4 mg capsule 0.4 mg PO Q24H 01/05/22 05/18/24 cefazolin 10 gram solution for IV Q8H 05/18/24 injection Allergies Allergy/AdvReac Type Severity Reaction Status Date / Time NSAIDS (Non-Steroidal AdvReac Verified 05/18/24 15:19 Anti-Inflamma PFSH PFSH Medical History Cerebral amyloid angiopathy ?E85.4 - Organ-limited amyloidosis (ICD-10) ?I68.0 - Cerebral amyloid angiopathy (ICD-10) Cerebral hemorrhage ?I61.9 - Nontraumatic intracerebral hemorrhage, unspecified (ICD-10) Paresthesia ?R20.2 - Paresthesia of skin (ICD-10) Pain of left side of body ?R52 - Pain, unspecified (ICD-10) Insomnia ?G47.00 - Insomnia, unspecified (ICD-10) Heart murmur ?R01.1 - Cardiac murmur, unspecified (ICD-10) Surgical History History of right inguinal hernia repair (01/09/21) ?Z98.890 - Other specified postprocedural states (ICD-10) ?Z87.19 - Personal history of other diseases of the digestive system (ICD-10) History of total knee arthroplasty (06/25/22) ?Z96.659 - Presence of unspecified artificial knee joint (ICD-10) Status post total knee replacement, right (01/06/22) ?Z96.651 - Presence of right artificial knee joint (ICD-10) H/O eye surgery ?Z98.890 - Other specified postprocedural states (ICD-10) Family History Mother CHF (congestive heart failure) Father Myocardial infarction High blood pressure Father ETOH abuse Brother Pacemaker COPD (chronic obstructive pulmonary disease) Sister A-fib Mother High blood pressure Social History Narrative: He lives at home alone. 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 Closest family is his son Winston who lives in [place]. Winston is his healthcare power of trial attorney. His code status is full. Highest level of school completed/degree received: high school graduate Smoking Status: Former smoker Do you use any of these nicotine containing products: None Second hand tobacco smoke exposure: No How often do you have a drink containing alcohol: never How often do you have six or more drinks on one occasion: Never AUDIT-C Alcohol total score: 0 Non-prescribed substance use: denies use Caffeine: Yes (occ coffee) service: No Exam Narrative: Exam Narrative: Vital signs reviewed In general, alert, well-appearing male. Extremities: Examination of the right arm shows the previous midline site to be benign in appearance without erythema or swelling. Const: Vital Signs, click to edit/add: Vital Signs - 24 hr 05/18/24 15:20 05/18/24 18:36 Temperature 97.7 F Pulse Rate 68 Pulse Rate [Pulse Oximeter] 73 Respiratory Rate 18 14 Blood Pressure 168/97 H Blood Pressure [Ri ght Upper Arm] 150/76 H Pulse Oximetry 97 98 Oxygen Delivery Me thod Room Air Documenting provider has reviewed patient's vital signs: yes Course Course ED Course: Patient does not seem to need any immediate care aside from replacement of his midline so that he can continue his antibiotics as he has been. PICC team has been called. PICC line replaced. Continue antibiotics at home, follow up as needed. Vital Signs Vital signs: Initial Vital Signs Temperature 97.7 F 05/18/24 15:20 Temperature Source Temporal Artery Scan 05/18/24 15:20 Pulse Rate 73 05/18/24 15:20 Respiratory Rate 18 05/18/24 15:20 Blood Pressure 150/76 H 05/18/24 15:20 Blood Pressure Mean 100 05/18/24 15:20 Blood Pressure Position Sitting 05/18/24 15:20 Pulse Oximetry 97 05/18/24 15:20 Oxygen Delivery Method Room Air 05/18/24 15:20 Vital Signs Temperature 97.7 F 05/18/24 15:20 Pulse Rate 73 05/18/24 15:20 Respiratory Rate 18 05/18/24 15:20 Blood Pressure 150/76 H 05/18/24 15:20 Pulse Oximetry 97 05/18/24 15:20 Oxygen Delivery Method Room Air 05/18/24 15:20 Temperature 97.7 F 05/18/24 15:20 Pulse Rate 68 05/18/24 18:36 Respiratory Rate 14 05/18/24 18:36 Blood Pressure 168/97 H 05/18/24 18:36 Pulse Oximetry 98 05/18/24 18:36 Oxygen Delivery Method Room Air 05/18/24 15:20 Discharge Plan Discharge Clinical Impression: Status post peripherally inserted central catheter (PICC) central line placement Patient Disposition: Home, Self-Care Condition: Improved Instructions: PICC (Peripherally Inserted Central Catheter) (DC) Additional Instructions: Continue your medications as prescribed. Return as needed. Prescriptions: No Action tamsulosin 0.4 mg capsule 0.4 mg PO Q24H Patient Comments: Take 1 Capsule (0.4 mg) by mouth once daily after a meal. acetaminophen 500 mg tablet 1,000 mg PO HS PRN cefazolin 10 gram recon soln IV Q8H Patient Comments: [NO ORIGINAL SIG] Follow Up/Referrals: Zaid Wu MD [Primary Care Provider] - Stand Alone Forms: MyHealth Info Instructions
[2024-05-18 18:36] VITALS: BP 168/97; PULSE 68; RESP 14; O2SAT 98
== END 2024-05-18 21:30 | disposition home or self-care (01) ==
PROVIDERS: Emergency Provider Emergency Medicine; PCP Family Medicine
DX: Z45.2 Encounter for adjustment and management of vascular access device (principal)
CPT/HCPCS: 36410; 76937; 99282; 99284; C1751

== ENCOUNTER 2025-02-19 13:48 | Outpatient (RCR) | payer MEDICARE, SELFPAY | END 2025-06-19 23:59 | disposition home or self-care (01) | PROVIDERS: PCP Family Medicine; Visit Provider Family Medicine | DX: Z47.1 Aftercare following joint replacement surgery (principal); Z96.653 Presence of artificial knee joint, bilateral; Z51.89 Encounter for other specified aftercare | CPT/HCPCS: 97110; 97161 ==